=== PATIENT | male | born 1995 | race African-American/Black ===

== ENCOUNTER 2017-12-09 09:29 | Emergency (ER) | payer SELFPAY ==
[~2017-12-09] VITALS: Ht 175.3 cm; Wt 86.2 kg
[2017-12-09 09:50] VITALS: BP 152/80
[2017-12-09] MEDS ORDERED: cefTRIAXone IM 250 MG VIAL IM ONE (10:15)
[2017-12-09] MEDS ORDERED: AZITHROMYCIN 250 MG TABLET. PO ONE (10:15)
--- NOTE | 2017-12-09 10:34 | PHYS DOC ---
Past Medical History Past Medical History: No Pertinent History Past Surgical History: No Surgical History Alcohol Use: Occasionally Drug Use: Marijuana Adult General Chief Complaint Chief Complaint: SEXUALLY TRANSMITTED DISEASE HPI HPI Patient is a 22 year old male who is presenting with pain with urination some discharge and also some swelling and pain to the pubic hair area above his penis. No fever no abdominal pain he says he is pretty sure this is an STD he has had similar symptoms in the past Review of Systems Review of Systems Constitutional: Denies fever or chills [] Eyes: Denies change in visual acuity, redness, or eye pain [] HENT: Denies nasal congestion or sore throat [] Respiratory: Denies cough or shortness of breath [] Cardiovascular: No additional information not addressed in HPI [] GI: Denies abdominal pain, nausea, vomiting, bloody stools or diarrhea [] : Otherwise negative except as noted in the history of present illness Current Medications Current Medications Current Medications Medications (Trade) Dose Ordered Sig/Deonna Start Time Stop Time Status Last Admin Dose Admin Azithromycin (Zithromax) 1,000 mg 1X ONCE 12/09/17 10:15 12/09/17 10:23 DC Ceftriaxone Sodium (Rocephin Im) 250 mg 1X ONCE 12/09/17 10:15 12/09/17 10:23 DC Allergies Allergies Allergies Coded Allergies Type Severity Reaction Last Updated Verified No Known Drug Allergies 12/09/17 No Physical Exam Physical Exam Constitutional: Well developed, well nourished, no acute distress, non-toxic appearance. [] HENT: Normocephalic, atraumatic, bilateral external ears normal, oropharynx moist, no oral exudates, nose normal. [] Eyes: PERRLA, EOMI, conjunctiva normal, no discharge. [] Neck: Normal range of motion, no tenderness, supple, no stridor. [] Pulmonary: Normal respiratory effort no increased work of breathing no obvious chest wall trauma Abdomen: Bowel sounds normal, soft, no tenderness, no masses, no pulsatile masses. [] exam shows normal penis mild lymphadenopathy inguinal area no lesions Skin: Warm, dry, no erythema, no rash. [] Back: No tenderness, no CVA tenderness. [] Extremities: No tenderness, no cyanosis, no clubbing, ROM intact, no edema. [] Neurologic: Alert and oriented X 3, normal motor function, normal sensory function, no focal deficits noted. [] Psychologic: Affect normal, judgement normal, mood normal. [] Current Patient Data Vital Signs Vital Signs Date Time Temp Pulse Resp B/P (MAP) Pulse Ox O2 Delivery O2 Flow Rate FiO2 12/09/17 09:50 100.4 73 14 152/80 (104) 97 Room Air 100.4 EKG EKG [] Radiology/Procedures Radiology/Procedures [] Course & Med Decision Making Course & Med Decision Making Pertinent Labs and Imaging studies reviewed. (See chart for details) []Likely urethritis patient had low-grade fever this is not unexpected. Ceftriaxone and azithromycin were given the emergency room and urine GC were collected. Patient was advised on the importance of having his partners tested and treated and to use protection for intercourse in the future. Dragon Disclaimer Dragon Disclaimer This electronic medical record was generated, in whole or in part, using a voice recognition dictation system. Departure Departure Impression: Primary Impression: Urethritis Disposition: HOME, SELF-CARE Condition: STABLE Referrals: NO PCP (PCP) SILVIA STEVENSON MD Dec 09, 2017 10:34
== END 2017-12-09 11:39 | disposition home or self-care (01) ==
LOC: ER 09:29
DX: N34.2 Other urethritis (principal)
CPT/HCPCS: 87491; 87591; 96372; 99284; J0696; Q0144